=== PATIENT | male | born 1945 | race Caucasian/White ===

== ENCOUNTER 2017-08-26 11:16 | Outpatient (CLI) | payer MEDICARE ==
--- NOTE | 2017-08-26 13:49 | RAD ---
TWO VIEWS OF THE ABDOMEN: 08/26/2017 HISTORY: Kidney stones. COMPARISON: Not available. FINDINGS: The majority of the renal shadows are obscured due to an overlying moderate amount of retained fecal material seen throughout the colon. No obvious suspicious calcifications are seen on this exam. Vas cular calcifications are seen in the abdominal aorta and in the iliac arteries. Mild degenerative ch anges are seen in the spine. The visualized lung bases are clear. IMPRESSION: 1. Moderate amount of retained fecal material seen throughout the colon. 2. Limited visualization of the bilateral renal shadows due to retained fecal material in the colon; no suspicious calcification are seen along the course of either ureter. POS: [facility]
== END 2017-08-26 11:17 | disposition home or self-care (01) ==
LOC: RAD 11:16
PROVIDERS: ATTEND Urology
DX: Z87.442 Personal history of urinary calculi (principal); K59.00 Constipation, unspecified
CPT/HCPCS: 36415; 74018; 84153

== ENCOUNTER 2018-04-14 11:30 | Emergency (ER) | payer MEDICARE ==
[2018-04-14 12:39] LABS: Hemoglobin 16.5 g/dL (14.0-18.0); Mean Corpuscular HGB CONC 34.1 g/dL (32.0-36.0); Mean Corpuscular Hemoglobin 33.1 pg (27.0-31.0); Mean Corpuscular Volume 97.1 fL (78.0-98.0); Mean Platelet Volume 7.5 fL (7.4-10.4); Platelet Count 190 thou/uL (130-400); RBC Distribution Width 12.6 % (11.5-14.5); Red Blood Cell (RBC) Count 4.98 mill/uL (4.70-6.10); White Blood Cell (WBC) Count 5.5 thou/uL (4.8-10.8)
[2018-04-14 12:52] LABS: Band 4 % (5-11); Eosinophils 3 % (0-10); Lymphocytes 27 % (21-51); MDiff Complete? YES; Monocytes 1 % (0-10); Neutrophil 64 % (42-75); RBC Morphology Normal
[2018-04-14 12:59] LABS: ALT (SGPT) 17 U/L (8-55); AST (SGOT) 18 U/L (5-34); Albumin 4.2 g/dL (3.4-4.8); Alkaline Phosphatase 72 U/L (40-150); Anion Gap 15 mmol/L (10-20); BUN (Urea Nitrogen) 12 mg/dL (8.4-25.7); Bilirubin, Total 0.9 mg/dL (0.2-1.2); CK (CPK) 65 U/L (30-200); Calc. Creatinine Clearance 0 mL/min (70-130); Calcium 9.4 mg/dL (7.8-10.44); Carbon Dioxide 20 mmol/L (23-31); Chloride 107 mmol/L (98-107); Estimated GFR-MDRD 89; Glucose 90 mg/dL (83-110); Potassium 4.1 mmol/L (3.5-5.1); Protein, Total 7.2 g/dL (5.8-8.1); Sodium 138 mmol/L (136-145)
[2018-04-14 13:03] LABS: CKMB 1.2 ng/mL (0-6.6); Troponin I Less than 0.010 ng/mL (< 0.028)
== END 2018-04-14 15:54 | disposition home or self-care (01) ==
LOC: ERS 11:30
DX: I10 Essential (primary) hypertension (principal); Z71.6 Tobacco abuse counseling; F17.210 Nicotine dependence, cigarettes, uncomplicated; I25.2 Old myocardial infarction; N40.0 Benign prostatic hyperplasia without lower urinary tract symptoms
CPT/HCPCS: 36415; 80053; 82553; 84484; 85025; 93005; 99406

== ENCOUNTER 2018-05-05 13:18 | Outpatient (CLI) | payer MEDICARE ==
--- NOTE | 2018-05-05 15:01 | RAD ---
KUB: INDICATION: History of renal stones. IMAGES: Two images submitted. COMPARISON: Prior exam dated 08/26/17. FINDINGS: There is a moderate amount of retained stool within the colon similar to the comparison exam. Lung b ases are clear. No suspicious calcification is evident. Scattered degenerative changes stable. IMPRESSION: 1. Stable moderate amount of retained stool within the colon. 2. No suspicious calcifications evident. POS: [facility]
== END 2018-05-05 13:19 | disposition home or self-care (01) ==
LOC: RAD 13:18
PROVIDERS: ATTEND Urology
DX: N20.0 Calculus of kidney (principal); R97.20 Elevated prostate specific antigen [PSA]
CPT/HCPCS: 36415; 74018; 84153

== ENCOUNTER 2020-05-20 10:22 | Outpatient (CLI) | payer MEDICARE ==
--- NOTE | 2020-05-20 14:50 | NM ---
NUCLEAR MEDICINE BONE SCAN WHOLE BODY: (Skeletal scintigraphy) DATE: 05/20/2020 HISTORY: 75-year-old male with elevated PSA TECHNIQUE: IV injection of technetium 99m-MDP: 33.0 mCi 3 hour delayed whole body skeletal scintigraphy in anterior and posterior views. FINDINGS: There are no foci of asymmetrically increased uptake that are particularly suspicious for bone metast ases. IMPRESSION: No compelling evidence of skeletal metastasis.
== END 2020-05-20 10:23 | disposition home or self-care (01) ==
LOC: NM 10:22
PROVIDERS: ATTEND Urology
DX: R97.20 Elevated prostate specific antigen [PSA] (principal)
CPT/HCPCS: 78306; A9503

== ENCOUNTER 2021-04-18 10:42 | Inpatient (IN) | payer MEDICARE ==
[2021-04-18 12:00] LABS: #Eosinphils 0.3 thou/uL (0.0-0.7); #Monocytes 0.5 thou/uL (0.11-0.59); #Neutrophils 6.8 thou/uL (1.40-6.50); %Basophils 0.5 % (0.0-1.0); %Eosinophils 3.9 % (0.0-10.0); %Lymphocytes 11.8 % (21.0-51.0); %Neutrophils 77.8 % (42.0-75.0); Mean Corpuscular HGB CONC 33.8 g/dL (32.0-36.0); Mean Corpuscular Hemoglobin 31.8 pg (27.0-31.0); Mean Corpuscular Volume 94.1 fL (78.0-98.0); Platelet Count 186 thou/uL (130-400); RBC Distribution Width 13.1 % (11.5-14.5); Red Blood Cell (RBC) Count 4.72 mill/uL (4.70-6.10); White Blood Cell (WBC) Count 8.7 thou/uL (4.8-10.8)
[2021-04-18 12:18] LABS: ALT (SGPT) 12 U/L (8-55); AST (SGOT) 16 U/L (5-34); Albumin 4.2 g/dL (3.4-4.8); Alkaline Phosphatase 87 U/L (40-110); Anion Gap 13 mmol/L (10-20); BUN (Urea Nitrogen) 12 mg/dL (8.4-25.7); Bilirubin, Total 0.8 mg/dL (0.2-1.2); Calc. Creatinine Clearance 0 mL/min (70-130); Calcium 9.9 mg/dL (7.8-10.44); Carbon Dioxide 25 mmol/L (23-31); Chloride 107 mmol/L (98-107); Globulin 2.9 g/dL (2.4-3.5); Glucose 83 mg/dL (83-110); Potassium 4.4 mmol/L (3.5-5.1); Protein, Total 7.1 g/dL (5.8-8.1); Sodium 141 mmol/L (136-145)
[2021-04-18] MEDS ORDERED: Aspirin Chewable 81 MG TAB ONE (12:55)
[2021-04-18] MEDS ORDERED: Nitroglycerin 0.4 MG TAB (25 Tab Bottle) SL PRN (13:35)
[2021-04-18] MEDS ORDERED: Enoxaparin Sodium 40 MG/0.4 ML SYRINGE SC SCH (13:45)
[2021-04-18] MEDS ORDERED: Enoxaparin Sodium 40 MG/0.4 ML SYRINGE ONE (14:23)
[2021-04-18 15:10] LABS: SARS-CoV-2 NAA Rapid Test Not Detected (NotDetected)
[2021-04-18] MEDS ORDERED: Clopidogrel Bisulfate 300 MG TAB PO SCH (15:30)
[2021-04-18 15:43] VITALS: BMI 23.4
[2021-04-18] MEDS: Amlodipine 5 MG TAB PO SCH (16:44)
[2021-04-18] MEDS: Carvedilol 3.125 MG TAB PO SCH (16:45)
[2021-04-18] MEDS: Famotidine 20 MG TAB PO SCH (20:06)
[2021-04-18] MEDS ORDERED: Atorvastatin Calcium 20 MG TAB PO SCH ×2 (21:00)
[2021-04-19 04:35] LABS: #Eosinphils 0.5 thou/uL (0.0-0.7); #Lymphocytes 1.4 thou/uL (1.20-3.40); #Monocytes 0.5 thou/uL (0.11-0.59); #Neutrophils 5.4 thou/uL (1.40-6.50); %Basophils 0.3 % (0.0-1.0); %Eosinophils 6.3 % (0.0-10.0); %Lymphocytes 18.1 % (21.0-51.0); %Monocytes 6.7 % (0.0-10.0); %Neutrophils 68.5 % (42.0-75.0); Hemoglobin 13.7 g/dL (14.0-18.0); Mean Corpuscular Hemoglobin 30.9 pg (27.0-31.0); Mean Corpuscular Volume 93.6 fL (78.0-98.0); Mean Platelet Volume 7.3 fL (7.4-10.4); Platelet Count 178 thou/uL (130-400); RBC Distribution Width 12.7 % (11.5-14.5); Red Blood Cell (RBC) Count 4.42 mill/uL (4.70-6.10); White Blood Cell (WBC) Count 7.9 thou/uL (4.8-10.8)
[2021-04-19 05:06] LABS: Anion Gap 13 mmol/L (10-20); BUN (Urea Nitrogen) 16 mg/dL (8.4-25.7); Calc. Creatinine Clearance 72 mL/min (70-130); Calcium 9.1 mg/dL (7.8-10.44); Carbon Dioxide 22 mmol/L (23-31); Cardiac Risk 6.1 (Less than 4.5); Chloride 109 mmol/L (98-107); Cholesterol 190 mg/dl (< 200 Desired); Glucose 97 mg/dL (83-110); HDL Cholesterol 31 mg/dL (>60 Neg Risk); LDL Cholesterol, Calculated 115 mg/dL; Potassium 3.9 mmol/L (3.5-5.1); Sodium 140 mmol/L (136-145); Triglycerides 220 mg/dL (Less than 150)
[2021-04-19] MEDS: Famotidine 20 MG TAB PO SCH ×2 (08:51→20:27)
[2021-04-19] MEDS: Clopidogrel Bisulfate 75 MG TAB PO SCH (08:51)
[2021-04-19] MEDS: Enoxaparin Sodium 40 MG/0.4 ML SYRINGE SC SCH (08:52)
[2021-04-19] MEDS: Carvedilol 3.125 MG TAB PO SCH ×2 (08:52→17:09)
[2021-04-19] MEDS: Aspirin 325 mg Enteric Coated Tablet PO SCH (08:52)
[2021-04-19] MEDS ORDERED: Aspirin 325 mg Enteric Coated Tablet PO SCH (09:00)
[2021-04-19] MEDS ORDERED: Icosapent Ethyl 1 GM CAPSULE PO SCH (09:30)
[2021-04-19] MEDS ORDERED: Acetaminophen 325 MG TAB PO PRN (10:44)
[2021-04-19] MEDS: Amlodipine 5 MG TAB PO SCH (17:09)
[2021-04-19] MEDS: Icosapent Ethyl 1 GM CAPSULE PO SCH (20:27)
[2021-04-19] MEDS ORDERED: Atorvastatin Calcium 20 MG TAB PO SCH (21:00)
[2021-04-20] MEDS: Icosapent Ethyl 1 GM CAPSULE PO SCH (08:43)
[2021-04-20] MEDS: Aspirin 325 mg Enteric Coated Tablet PO SCH (08:43)
[2021-04-20] MEDS: Famotidine 20 MG TAB PO SCH (08:43)
[2021-04-20] MEDS: Enoxaparin Sodium 40 MG/0.4 ML SYRINGE SC SCH (08:44)
[2021-04-20] MEDS: Clopidogrel Bisulfate 75 MG TAB PO SCH (08:44)
[2021-04-20] MEDS: Carvedilol 3.125 MG TAB PO SCH (08:44)
[2021-04-20 12:47] VITALS: BP 120/74; TEMP 97.6
== END 2021-04-20 13:10 | disposition home or self-care (01) | DRG 303 ==
LOC: ERS 10:42 → SUATTDRO 10:42 → ERHOLD 13:09 → 2NO 15:17 → OBSVTOIN 04-19 17:42
PROVIDERS: ADMIT Family Medicine; ATTEND Internal Medicine
DX: I25.110 Atherosclerotic heart disease of native coronary artery with unstable angina pectoris (principal); I50.32 Chronic diastolic (congestive) heart failure; R04.2 Hemoptysis; Z20.822 Contact with and (suspected) exposure to COVID-19; E78.5 Hyperlipidemia, unspecified; K21.9 Gastro-esophageal reflux disease without esophagitis; I11.0 Hypertensive heart disease with heart failure; J44.9 Chronic obstructive pulmonary disease, unspecified; Z53.20 Procedure and treatment not carried out because of patient's decision for unspecified reasons; Z85.46 Personal history of malignant neoplasm of prostate; Z82.49 Family history of ischemic heart disease and other diseases of the circulatory system; Z28.21 Immunization not carried out because of patient refusal; Z88.5 Allergy status to narcotic agent; I25.2 Old myocardial infarction; Z95.5 Presence of coronary angioplasty implant and graft; Z87.891 Personal history of nicotine dependence; Z79.899 Other long term (current) drug therapy; Z79.82 Long term (current) use of aspirin; Z85.51 Personal history of malignant neoplasm of bladder; Z92.21 Personal history of antineoplastic chemotherapy; Z90.6 Acquired absence of other parts of urinary tract; Z80.1 Family history of malignant neoplasm of trachea, bronchus and lung; Z91.19 Patient's noncompliance with other medical treatment and regimen
CPT/HCPCS: 0240U; 36415; 36416; 71046; 80048; 80053; 80061; 84484; 85025; 93005; 93306; 94760; 96372; G0378; J1650

== ENCOUNTER 2021-08-08 07:31 | Outpatient (CLI) | payer MEDICARE | END 2021-08-08 07:32 | disposition home or self-care (01) | LOC: BICULT 07:31 | PROVIDERS: ATTEND Registered Nurse | DX: Z12.2 Encounter for screening for malignant neoplasm of respiratory organs (principal); Z13.6 Encounter for screening for cardiovascular disorders; F17.210 Nicotine dependence, cigarettes, uncomplicated; J43.9 Emphysema, unspecified; R91.8 Other nonspecific abnormal finding of lung field; K22.89 Other specified disease of esophagus | CPT/HCPCS: 71271; 76775 ==

== ENCOUNTER 2022-01-15 05:45 | Inpatient (IN) | payer MEDICARE ==
[2022-01-15] MEDS ORDERED: Ketorolac Tromethamine 30 MG/ML VIAL ONE (06:07)
[2022-01-15] MEDS ORDERED: Fentanyl 100 MCG/2 ML VIAL ONE ×2 (06:07→07:39)
[2022-01-15 07:32] LABS: #Eosinphils 0.1 thou/uL (0.0-0.7); #Lymphocytes 0.7 thou/uL (1.20-3.40); #Monocytes 0.6 thou/uL (0.11-0.59); #Neutrophils 10.4 thou/uL (1.40-6.50); %Basophils 0.1 % (0.0-1.0); %Eosinophils 0.6 % (0.0-10.0); %Lymphocytes 6.2 % (21.0-51.0); %Monocytes 4.9 % (0.0-10.0); %Neutrophils 88.2 % (42.0-75.0); Hemoglobin 14.8 g/dL (14.0-18.0); Mean Corpuscular HGB CONC 33.2 g/dL (32.0-36.0); Mean Corpuscular Volume 96.5 fL (78.0-98.0); Mean Platelet Volume 7.6 fL (7.4-10.4); Platelet Count 174 thou/uL (130-400); RBC Distribution Width 12.9 % (11.5-14.5); Red Blood Cell (RBC) Count 4.62 mill/uL (4.70-6.10); White Blood Cell (WBC) Count 11.8 thou/uL (4.8-10.8)
[2022-01-15] MEDS ORDERED: hydrALAZINE 20 MG/ML VIAL SLOW IVP PRN (07:34)
[2022-01-15] MEDS ORDERED: Promethazine HCl 25 MG/ML VIAL IM PRN (07:34)
[2022-01-15] MEDS ORDERED: Dextrose 5% in Water 1,000 ML IV PRN (07:34)
[2022-01-15] MEDS ORDERED: Ondansetron PF 4 MG/2 ML Vial IVP PRN (07:34)
[2022-01-15] MEDS ORDERED: Dextrose 50% Abboject 50 ML SYRINGE SLOW IVP PRN (07:34)
[2022-01-15] MEDS ORDERED: HumaLOG 300 UNITS/3 ML VIAL SC PRN (07:34)
[2022-01-15] MEDS ORDERED: Cyclobenzaprine 10 MG TAB PO PRN (07:37)
[2022-01-15] MEDS ORDERED: Acetaminophen 325 MG TAB PO SCH (07:45)
[2022-01-15 07:47] LABS: ALT (SGPT) 13 U/L (8-55); AST (SGOT) 14 U/L (5-34); Albumin 3.8 g/dL (3.4-4.8); Alkaline Phosphatase 68 U/L (40-110); Anion Gap 13 mmol/L (10-20); BUN (Urea Nitrogen) 15 mg/dL (8.4-25.7); Bilirubin, Total 0.8 mg/dL (0.2-1.2); Calc. Creatinine Clearance 0 mL/min (70-130); Calcium 9.6 mg/dL (7.8-10.44); Carbon Dioxide 21 mmol/L (23-31); Chloride 112 mmol/L (98-107); Globulin 2.6 g/dL (2.4-3.5); Glucose 103 mg/dL (83-110); Protein, Total 6.4 g/dL (5.8-8.1); Sodium 142 mmol/L (136-145)
[2022-01-15 09:46] VITALS: BMI 24.1
[2022-01-15] MEDS: Famotidine/PF 20 mg/2ml Vial SLOW IVP SCH ×2 (09:57→20:47)
[2022-01-15] MEDS: Senokot S 8.6-50 MG TAB PO SCH ×2 (09:57→20:47)
[2022-01-15] MEDS: Polyethylene Glycol 3350 17 GM Packet PO SCH (09:57)
[2022-01-15] MEDS: Acetaminophen 500 MG TAB PO SCH ×3 (09:59→20:49)
[2022-01-15] MEDS: traMADol HCl 50 MG TAB PO PRN (10:00)
[2022-01-15] MEDS ORDERED: Fentanyl 100 MCG/2 ML VIAL SLOW IVP PRN (10:17)
[2022-01-15] MEDS ORDERED: HYDROcodone/Acetaminophen 10/325 mg Tablet PO PRN (10:18)
[2022-01-15] MEDS ORDERED: CEFAZOLIN 2 GM in Sodium Chloride 0.9% 100 ML IVPB SCH (11:00)
[2022-01-15] MEDS: traMADol HCl 50 MG TAB PO SCH ×2 (12:50→17:32)
[2022-01-15] MEDS: Tamsulosin HCl 0.4 MG CAP PO SCH ×2 (20:49→20:51)
[2022-01-16] MEDS: traMADol HCl 50 MG TAB PO SCH ×4 (00:17→16:18)
[2022-01-16] MEDS: Acetaminophen 500 MG TAB PO SCH ×5 (02:17→20:49)
[2022-01-16 06:13] LABS: #Eosinphils 0.3 thou/uL (0.0-0.7); #Lymphocytes 1.3 thou/uL (1.20-3.40); #Monocytes 0.7 thou/uL (0.11-0.59); #Neutrophils 6.2 thou/uL (1.40-6.50); %Basophils 0.5 % (0.0-1.0); %Eosinophils 3.8 % (0.0-10.0); %Lymphocytes 15.5 % (21.0-51.0); %Monocytes 8.1 % (0.0-10.0); %Neutrophils 72.1 % (42.0-75.0); Hemoglobin 13.4 g/dL (14.0-18.0); Mean Corpuscular HGB CONC 32.8 g/dL (32.0-36.0); Mean Corpuscular Hemoglobin 31.9 pg (27.0-31.0); Mean Corpuscular Volume 97.3 fL (78.0-98.0); Mean Platelet Volume 7.7 fL (7.4-10.4); Platelet Count 149 thou/uL (130-400); RBC Distribution Width 13.1 % (11.5-14.5); Red Blood Cell (RBC) Count 4.21 mill/uL (4.70-6.10); White Blood Cell (WBC) Count 8.6 thou/uL (4.8-10.8)
[2022-01-16 06:44] LABS: Anion Gap 12 mmol/L (10-20); BUN (Urea Nitrogen) 23 mg/dL (8.4-25.7); Calc. Creatinine Clearance 75 mL/min (70-130); Calcium 8.9 mg/dL (7.8-10.44); Carbon Dioxide 22 mmol/L (23-31); Chloride 109 mmol/L (98-107); Glucose 86 mg/dL (83-110); Magnesium 1.9 mg/dL (1.6-2.6); Phosphorus 3.1 mg/dL (2.3-4.7); Potassium 4.2 mmol/L (3.5-5.1); Sodium 139 mmol/L (136-145)
[2022-01-16] MEDS: Polyethylene Glycol 3350 17 GM Packet PO SCH (08:00)
[2022-01-16] MEDS: Senokot S 8.6-50 MG TAB PO SCH ×2 (08:00→20:54)
[2022-01-16] MEDS ORDERED: Sodium Phosphate 15 MMOL in Sodium Chloride 0.9% 250 ML 250 ML IVPB SCH (11:10)
[2022-01-16] MEDS ORDERED: Ondansetron ODT 4 MG TAB PO PRN (13:04)
[2022-01-16] MEDS ORDERED: Bisacodyl 10 MG SUPP PR PRN (13:04)
[2022-01-16] MEDS ORDERED: Ondansetron PF 4 MG/2 ML Vial IVP PRN (13:04)
[2022-01-16] MEDS ORDERED: Cepastat Lozenges 1 LOZ PO PRN (13:04)
[2022-01-16] MEDS ORDERED: Fleet Enema 133 ML BOT PR PRN (13:04)
[2022-01-16] MEDS ORDERED: Milk Of Magnesia 30 ML UDCUP PO PRN (13:04)
[2022-01-16] MEDS ORDERED: Acetaminophen 325 MG TAB PO PRN ×2 (13:04→16:57)
[2022-01-16] MEDS ORDERED: fentaNYL Citrate/PF 100 MCG/2 ML SYRINGE ONE ×2 (13:07→15:32)
[2022-01-16] MEDS ORDERED: HYDROcodone/Acetaminophen 10/325 mg Tablet PO PRN ×4 (13:08→17:05)
[2022-01-16] MEDS ORDERED: Sodium Chloride 0.9% 1,000 ML IV SCH (13:15)
[2022-01-16] MEDS ORDERED: Sodium Chloride 0.9% 100 ML ONE (13:24)
[2022-01-16] MEDS ORDERED: CEFAZOLIN 2 GM VIAL ONE (13:24)
[2022-01-16] MEDS ORDERED: PHENYLEPHRINE-NS 100 MCG/ML 10 ML SYRINGE ONE (13:39)
[2022-01-16] MEDS ORDERED: ePHEDrine 50 MG/ML VIAL ONE (13:39)
[2022-01-16] MEDS ORDERED: Dexamethasone 20 MG/5 ML VIAL ONE (13:39)
[2022-01-16] MEDS ORDERED: Ketorolac Tromethamine 30 MG/ML VIAL ONE (13:39)
[2022-01-16] MEDS ORDERED: Lidocaine 1% PF 5 ML VIAL ONE (13:39)
[2022-01-16] MEDS ORDERED: Ondansetron PF 4 MG/2 ML Vial ONE (13:39)
[2022-01-16] MEDS ORDERED: HYDROmorphone 2 MG/ML VIAL ONE (13:57)
[2022-01-16] MEDS ORDERED: Ondansetron HCl/PF 4 MG/2 ML Vial IVP PRN (14:14)
[2022-01-16] MEDS ORDERED: Promethazine HCl 25 MG/ML VIAL IVPB PRN (14:14)
[2022-01-16] MEDS ORDERED: Promethazine HCl 25 MG/ML VIAL IM PRN (14:14)
[2022-01-16] MEDS: traMADol HCl 50 MG TAB PO PRN (16:19)
[2022-01-16] MEDS: Famotidine/PF 20 mg/2ml Vial SLOW IVP SCH (19:54)
[2022-01-16] MEDS: Tamsulosin HCl 0.4 MG CAP PO SCH (20:49)
[2022-01-16] MEDS: Atorvastatin Calcium 20 MG TAB PO SCH (20:52)
[2022-01-16] MEDS: Famotidine 20 MG TAB PO SCH (20:52)
[2022-01-16] MEDS: CEFAZOLIN 2 GM in Sodium Chloride 0.9% 100 ML IVPB SCH (20:52)
[2022-01-16] MEDS: Aspirin 325 MG TAB PO SCH (20:52)
[2022-01-17] MEDS: traMADol HCl 50 MG TAB PO SCH ×4 (00:21→17:41)
[2022-01-17] MEDS: Acetaminophen 500 MG TAB PO SCH ×4 (03:55→21:06)
[2022-01-17] MEDS: CEFAZOLIN 2 GM in Sodium Chloride 0.9% 100 ML IVPB SCH (05:22)
[2022-01-17 06:22] LABS: #Lymphocytes 0.7 thou/uL (1.20-3.40); #Monocytes 0.7 thou/uL (0.11-0.59); #Neutrophils 8.5 thou/uL (1.40-6.50); %Eosinophils 0.1 % (0.0-10.0); %Monocytes 7.2 % (0.0-10.0); %Neutrophils 85.7 % (42.0-75.0); Hemoglobin 12.3 g/dL (14.0-18.0); Mean Corpuscular HGB CONC 33.3 g/dL (32.0-36.0); Mean Corpuscular Hemoglobin 32.3 pg (27.0-31.0); Mean Corpuscular Volume 96.8 fL (78.0-98.0); Mean Platelet Volume 7.4 fL (7.4-10.4); Platelet Count 133 thou/uL (130-400); RBC Distribution Width 12.9 % (11.5-14.5)
[2022-01-17 06:43] LABS: Anion Gap 10 mmol/L (10-20); BUN (Urea Nitrogen) 17 mg/dL (8.4-25.7); Calc. Creatinine Clearance 69 mL/min (70-130); Calcium 8.3 mg/dL (7.8-10.44); Carbon Dioxide 24 mmol/L (23-31); Chloride 110 mmol/L (98-107); Glucose 118 mg/dL (83-110); Magnesium 1.9 mg/dL (1.6-2.6); Potassium 4.6 mmol/L (3.5-5.1); Sodium 139 mmol/L (136-145)
[2022-01-17] MEDS: Polyethylene Glycol 3350 17 GM Packet PO SCH (08:13)
[2022-01-17] MEDS: Senokot S 8.6-50 MG TAB PO SCH ×2 (08:14→21:07)
[2022-01-17] MEDS: Aspirin 325 MG TAB PO SCH ×2 (08:14→21:07)
[2022-01-17] MEDS: Amlodipine 5 MG TAB PO SCH (08:14)
[2022-01-17] MEDS: Famotidine 20 MG TAB PO SCH ×2 (08:15→21:07)
[2022-01-17] MEDS: Multivitamin W/ Minerals 1 TAB PO SCH (08:15)
[2022-01-17] MEDS: Ferrous Gluconate 324 MG TAB PO SCH ×2 (08:15→21:07)
[2022-01-17] MEDS: Lisinopril 5 MG TAB PO SCH (08:15)
[2022-01-17] MEDS ORDERED: Amlodipine 5 MG TAB PO SCH (09:00)
[2022-01-17] MEDS ORDERED: Lisinopril 5 MG TAB PO SCH (09:00)
[2022-01-17] MEDS ORDERED: Aspirin 325 MG TAB PO SCH (09:00)
[2022-01-17] MEDS ORDERED: PHOS-NAK 1 PKT PACK PO SCH (10:00)
[2022-01-17] MEDS: Atorvastatin Calcium 20 MG TAB PO SCH (21:07)
[2022-01-17] MEDS: Tamsulosin HCl 0.4 MG CAP PO SCH (21:08)
[2022-01-18] MEDS: traMADol HCl 50 MG TAB PO SCH ×4 (00:15→18:11)
[2022-01-18] MEDS: Acetaminophen 500 MG TAB PO SCH ×3 (03:52→15:05)
[2022-01-18 05:51] LABS: #Eosinphils 0.3 thou/uL (0.0-0.7); #Lymphocytes 1.6 thou/uL (1.20-3.40); #Monocytes 0.6 thou/uL (0.11-0.59); #Neutrophils 6.1 thou/uL (1.40-6.50); %Basophils 0.5 % (0.0-1.0); %Eosinophils 3.8 % (0.0-10.0); %Lymphocytes 18.8 % (21.0-51.0); %Monocytes 7.1 % (0.0-10.0); %Neutrophils 69.9 % (42.0-75.0); Hemoglobin 12.4 g/dL (14.0-18.0); Mean Corpuscular HGB CONC 32.4 g/dL (32.0-36.0); Mean Corpuscular Volume 98.9 fL (78.0-98.0); Mean Platelet Volume 7.5 fL (7.4-10.4); Platelet Count 161 thou/uL (130-400); RBC Distribution Width 13.2 % (11.5-14.5); Red Blood Cell (RBC) Count 3.88 mill/uL (4.70-6.10); White Blood Cell (WBC) Count 8.7 thou/uL (4.8-10.8)
[2022-01-18 06:14] LABS: Anion Gap 13 mmol/L (10-20); BUN (Urea Nitrogen) 15 mg/dL (8.4-25.7); Calc. Creatinine Clearance 70 mL/min (70-130); Calcium 8.7 mg/dL (7.8-10.44); Carbon Dioxide 20 mmol/L (23-31); Glucose 90 mg/dL (83-110); Magnesium 1.9 mg/dL (1.6-2.6); Phosphorus 2.5 mg/dL (2.3-4.7); Potassium 4.3 mmol/L (3.5-5.1); Sodium 139 mmol/L (136-145)
[2022-01-18 06:18] LABS: Chloride 110 mmol/L (98-107)
[2022-01-18] MEDS ORDERED: Aspirin 325 MG TAB PO SCH (08:10)
[2022-01-18] MEDS: Multivitamin W/ Minerals 1 TAB PO SCH (08:17)
[2022-01-18] MEDS: Lisinopril 5 MG TAB PO SCH (08:17)
[2022-01-18] MEDS: Ferrous Gluconate 324 MG TAB PO SCH (08:18)
[2022-01-18] MEDS: Amlodipine 5 MG TAB PO SCH (08:18)
[2022-01-18] MEDS: Famotidine 20 MG TAB PO SCH (08:18)
[2022-01-18] MEDS ORDERED: Aspirin Chewable 81 MG TAB PO SCH (09:00)
[2022-01-18] MEDS ORDERED: PHOS-NAK 1 PKT PACK PO SCH (09:00)
[2022-01-18] MEDS: Senokot S 8.6-50 MG TAB PO SCH (10:09)
[2022-01-18] MEDS: Polyethylene Glycol 3350 17 GM Packet PO SCH (10:09)
[2022-01-18 20:13] VITALS: BP 126/62; TEMP 97
== END 2022-01-18 21:38 | disposition home or self-care (01) | DRG 482 ==
LOC: ERS 05:45 → SURG A 07:34
PROVIDERS: ADMIT Surgery; ATTEND Surgery
PROC: 0QS706Z Reposition Left Upper Femur with Intramedullary Internal Fixation Device, Open Approach (ICD-10-PCS; principal; 2022-01-16)
DX: S72.142A Displaced intertrochanteric fracture of left femur, initial encounter for closed fracture (principal); Z20.822 Contact with and (suspected) exposure to COVID-19; N40.0 Benign prostatic hyperplasia without lower urinary tract symptoms; I10 Essential (primary) hypertension; E78.5 Hyperlipidemia, unspecified; I25.10 Atherosclerotic heart disease of native coronary artery without angina pectoris; W06.XXXA Fall from bed, initial encounter; Z87.891 Personal history of nicotine dependence; I25.2 Old myocardial infarction; Z95.5 Presence of coronary angioplasty implant and graft; Z85.51 Personal history of malignant neoplasm of bladder; Z79.82 Long term (current) use of aspirin; Z79.899 Other long term (current) drug therapy; Z79.02 Long term (current) use of antithrombotics/antiplatelets
CPT/HCPCS: 36415; 70450; 71045; 72125; 72190; 76000; 80048; 80053; 83735; 84100; 85025; 86850; 86900; 86901; 93005; 96374; 96375; 96376; C1713; J0690; J1100; J1170; J1885; J2405; J3010; J3490; J7050; U0003; U0005

== ENCOUNTER 2022-04-11 09:15 | Outpatient (CLI) | payer MEDICARE | END 2022-04-11 09:16 | disposition home or self-care (01) | LOC: MRI 09:15 | PROVIDERS: ATTEND Orthopaedic Surgery | DX: M23.204 Derangement of unspecified medial meniscus due to old tear or injury, left knee (principal); Z98.890 Other specified postprocedural states ==

== ENCOUNTER 2022-08-08 08:37 | Outpatient (CLI) | payer MEDICARE | END 2022-08-08 08:38 | disposition home or self-care (01) | LOC: BICCT 08:37 | PROVIDERS: ATTEND Registered Nurse | DX: Z12.2 Encounter for screening for malignant neoplasm of respiratory organs (principal); F17.210 Nicotine dependence, cigarettes, uncomplicated; R91.1 Solitary pulmonary nodule; J98.4 Other disorders of lung; I70.90 Unspecified atherosclerosis; K44.9 Diaphragmatic hernia without obstruction or gangrene; N20.0 Calculus of kidney; R16.0 Hepatomegaly, not elsewhere classified | CPT/HCPCS: 71271 ==

== ENCOUNTER 2023-01-21 02:56 | Emergency (ER) | payer MEDICARE ==
[2023-01-21 03:56] LABS: #Eosinphils 0.1 thou/uL (0.0-0.7); #Monocytes 0.4 thou/uL (0.11-0.59); #Neutrophils 5.5 thou/uL (1.40-6.50); %Basophils 0.5 % (0.0-1.0); %Eosinophils 1.4 % (0.0-10.0); %Lymphocytes 17.4 % (21.0-51.0); %Monocytes 5.2 % (0.0-10.0); Hemoglobin 15.9 g/dL (14.0-18.0); Mean Corpuscular HGB CONC 34.1 g/dL (32.0-36.0); Mean Corpuscular Volume 93.8 fl (78.0-98.0); Platelet Count 184 10x3/uL (130-400); RBC Distribution Width 13.2 % (11.5-14.5); Red Blood Cell (RBC) Count 4.97 mill/uL (4.70-6.10); White Blood Cell (WBC) Count 7.4 10x3/uL (4.8-10.8)
[2023-01-21] MEDS ORDERED: Ketorolac Tromethamine 30 MG/ML VIAL ONE (04:10)
[2023-01-21 04:27] LABS: ALT (SGPT) 12 U/L (8-55); AST (SGOT) 17 U/L (5-34); Albumin 4.2 g/dL (3.4-4.8); Alkaline Phosphatase 70 U/L (40-110); Anion Gap 11 mmol/L (10-20); BUN (Urea Nitrogen) 15 mg/dL (8.4-25.7); Bilirubin, Total 0.4 mg/dL (0.2-1.2); Calc. Creatinine Clearance 0 mL/min (70-130); Calcium 10.2 mg/dL (7.8-10.44); Carbon Dioxide 23 mmol/L (23-31); Chloride 109 mmol/L (98-107); Estimated GFR 88; Globulin 2.7 g/dL (2.4-3.5); Glucose 98 mg/dL (83-110); Lipase 85 U/L (8-78); Protein, Total 6.9 g/dL (5.8-8.1); Sodium 139 mmol/L (136-145)
[2023-01-21 05:29] LABS: Bacteria/HPF None Seen HPF (None Seen); Bilirubin Negative (Negative); Blood, Urine Negative (Negative); CAUTI Indications for Culture Pelvic or flank pain; Clarity Clear (Clear); Glucose, Urine (Dipstick) Normal (Negative); Ketone, Urine Negative (Negative); Leukocyte Negative Leu/uL (Negative); Nitrite Negative (Negative); Protein, Urine (Dipstick) Negative (Neg-Trace); RBC/HPF 0-3 HPF (0-3); Specific Gravity, Urine 1.006 (1.002-1.036); Squamous Epithelial 0-3 HPF (0-3); Urobilinogen Normal mg/dL (Less than 2); WBC/HPF 0-3 HPF (0-3); pH, Urine 6.5 (5.0-9.0)
[2023-01-21 05:32] LABS: Urine Culture Reflex No No
[2023-01-21] MEDS ORDERED: Iopamidol-370 76% 500 ML MDV (1 ML CHARGE) ONE (17:08)
== END 2023-01-21 07:02 | disposition home or self-care (01) ==
LOC: ERS 02:56
DX: K59.00 Constipation, unspecified (principal); I10 Essential (primary) hypertension; E78.5 Hyperlipidemia, unspecified
CPT/HCPCS: 36415; 74177; 80053; 81001; 83690; 84484; 85025; 96374; J1885; Q9967

== ENCOUNTER 2024-05-12 13:38 | Inpatient (IN) | payer MEDICARE ==
[~2024-05-12 13:38] MED LIST: Iopamidol-370 76% 500 ML MDV (1 ML CHARGE) ONE
[2024-05-12 14:34] LABS: #Basophils 0.04 10x3/uL (0.0-0.2); #Eosinophils Less than 0.03 10x3/uL (0.0-0.7); %Basophils 0.3 % (0.0-1.0); %Eosinophils 0.2 % (0.0-10.0); %Lymphocytes 5.8 % (21.0-51.0); %Monocytes 5.1 % (0.0-10.0); Hematocrit 41.5 % (42.0-52.0); Hemoglobin 14.2 g/dL (14.0-18.0); Mean Corpuscular HGB CONC 34.2 g/dL (32.0-36.0); Mean Corpuscular Hemoglobin 31.4 pg (27.0-31.0); Mean Corpuscular Volume 91.8 fL (78.0-98.0); Mean Platelet Volume 10.1 fL (7.4-10.4); Platelet Count 208 10x3/uL (130-400); RBC Distribution Width 13.3 % (11.5-14.5); Red Blood Cell (RBC) Count 4.52 mill/uL (4.70-6.10)
[2024-05-12] MEDS ORDERED: fentaNYL 50 mcg/mL 1 mL Vial ONE (14:41)
[2024-05-12 14:51] LABS: ALT (SGPT) 13 U/L (8-55); AST (SGOT) 24 U/L (5-34); Albumin 3.8 g/dL (3.4-4.8); Alkaline Phosphatase 83 U/L (40-110); Anion Gap 17 mmol/L (10-20); BUN (Urea Nitrogen) 23 mg/dL (8.4-25.7); Bilirubin, Total 1.2 mg/dL (0.2-1.2); Calc. Creatinine Clearance 0 mL/min (70-130); Calcium 9.9 mg/dL (7.8-10.44); Carbon Dioxide 18 mmol/L (23-31); Chloride 105 mmol/L (98-107); Estimated GFR 78; Globulin 3.2 g/dL (2.4-3.5); Glucose 108 mg/dL (83-110); Lipase 38 U/L (8-78); Potassium 4.5 mmol/L (3.5-5.1); Sodium 135 mmol/L (136-145)
[2024-05-12] MEDS ORDERED: Piperacillin/Tazobactam 4.5 GM VIAL ONE (16:42)
[2024-05-12] MEDS ORDERED: Ketorolac Tromethamine 30 MG (1 mL) VIAL ONE (16:42)
[2024-05-12] MEDS ORDERED: Sodium Chloride 0.9% 100 ML ONE (16:43)
[2024-05-12] MEDS ORDERED: Acetaminophen 325 MG TAB PER TUBE PRN (17:10)
[2024-05-12] MEDS ORDERED: Ondansetron ODT 4 MG TAB PO PRN (17:10)
[2024-05-12] MEDS ORDERED: Ondansetron PF 4 MG/2 ML Vial IVP PRN (17:10)
[2024-05-12 19:41] VITALS: BMI 18.3
[2024-05-12] MEDS: Senokot S 8.6-50 MG TAB PER TUBE SCH (20:24)
[2024-05-12] MEDS: Polyethylene Glycol 3350 17 GM Packet PER TUBE SCH (20:24)
[2024-05-12] MEDS: Lactated Ringer's 1,000 ML IV SCH (20:25)
[2024-05-12] MEDS: Piperacillin/Tazobactam 3.375 GM in Sodium Chloride 0.9% 100 ML IVPB SCH (20:25)
[2024-05-13] MEDS: Ketorolac Tromethamine 30 MG (1 mL) VIAL IVP SCH (03:58)
[2024-05-13] MEDS ORDERED: HYDROmorphone 0.5 MG/0.5 ML SYRINGE SLOW IVP SCH (04:30)
[2024-05-13 05:02] LABS: #Basophils 0.05 10x3/uL (0.0-0.2); %Basophils 0.6 % (0.0-1.0); %Eosinophils 2.5 % (0.0-10.0); %Monocytes 7.5 % (0.0-10.0); %Neutrophils 75.9 % (42.0-75.0); Hematocrit 40.2 % (42.0-52.0); Hemoglobin 14.1 g/dL (14.0-18.0); Mean Corpuscular HGB CONC 35.1 g/dL (32.0-36.0); Mean Corpuscular Hemoglobin 31.5 pg (27.0-31.0); Mean Corpuscular Volume 89.7 fL (78.0-98.0); Platelet Count 188 10x3/uL (130-400); RBC Distribution Width 13.3 % (11.5-14.5); Red Blood Cell (RBC) Count 4.48 mill/uL (4.70-6.10)
[2024-05-13 05:23] LABS: Anion Gap 12 mmol/L (10-20); BUN (Urea Nitrogen) 19 mg/dL (8.4-25.7); Calc. Creatinine Clearance 58 mL/min (70-130); Calcium 9.5 mg/dL (7.8-10.44); Carbon Dioxide 22 mmol/L (23-31); Chloride 108 mmol/L (98-107); Estimated GFR 87; Glucose 86 mg/dL (83-110); Potassium 3.5 mmol/L (3.5-5.1); Sodium 138 mmol/L (136-145)
[2024-05-13] MEDS: Polyethylene Glycol 3350 17 GM Packet PER TUBE SCH (09:00)
[2024-05-13] MEDS: Atorvastatin Calcium 40 MG TAB PO SCH (09:00)
[2024-05-13] MEDS: Enoxaparin 40 MG (0.4 mL) SYRINGE SC SCH (09:00)
[2024-05-13 10:40] VITALS: BMI 18.3
[2024-05-13] MEDS: HYDROcodone/Acetaminophen 5/325 mg Tablet PO PRN (11:09)
[2024-05-13] MEDS: fentaNYL 50 mcg/mL 1 mL Vial SLOW IVP SCH (17:32)
[2024-05-13] MEDS: Fleet Saline Enema 133 ML BOT PR SCH (17:33)
[2024-05-13] MEDS: traMADol HCl 50 MG TAB PO SCH (17:34)
[2024-05-13] MEDS ORDERED: Glycerin Adult Supp. (12 ct jar) RC PRN (19:46)
[2024-05-13] MEDS: Sodium Chloride 0.9% 1,000 ML IV SCH (20:26)
[2024-05-14 06:16] LABS: #Basophils 0.03 10x3/uL (0.0-0.2); %Basophils 0.3 % (0.0-1.0); %Lymphocytes 8.7 % (21.0-51.0); %Monocytes 7.4 % (0.0-10.0); %Neutrophils 81.2 % (42.0-75.0); Hematocrit 39.3 % (42.0-52.0); Hemoglobin 13.4 g/dL (14.0-18.0); Mean Corpuscular HGB CONC 34.1 g/dL (32.0-36.0); Mean Corpuscular Hemoglobin 31.2 pg (27.0-31.0); Mean Corpuscular Volume 91.4 fL (78.0-98.0); Mean Platelet Volume 10.3 fL (7.4-10.4); Platelet Count 181 10x3/uL (130-400); RBC Distribution Width 13.2 % (11.5-14.5)
[2024-05-14 06:55] LABS: Anion Gap 9 mmol/L (10-20); BUN (Urea Nitrogen) 13 mg/dL (8.4-25.7); Calc. Creatinine Clearance 60 mL/min (70-130); Calcium 8.6 mg/dL (7.8-10.44); Carbon Dioxide 22 mmol/L (23-31); Chloride 111 mmol/L (98-107); Estimated GFR 88; Glucose 116 mg/dL (83-110); Potassium 3.4 mmol/L (3.5-5.1); Sodium 139 mmol/L (136-145)
[2024-05-14] MEDS: FLU (Fluad Triv) TS24-25 (65UP)/MF59C/PF 45 MCG/0.5 ML Syringe IM ONE (09:27)
[2024-05-14] MEDS: Magnesium Citrate 300 ML BOT PO SCH (11:53)
[2024-05-15 04:57] LABS: #Basophils 0.03 10x3/uL (0.0-0.2); %Basophils 0.5 % (0.0-1.0); %Eosinophils 4.7 % (0.0-10.0); %Lymphocytes 18.9 % (21.0-51.0); %Monocytes 9.3 % (0.0-10.0); %Neutrophils 66.3 % (42.0-75.0); Hematocrit 39.5 % (42.0-52.0); Hemoglobin 12.9 g/dL (14.0-18.0); Mean Corpuscular HGB CONC 32.7 g/dL (32.0-36.0); Mean Corpuscular Hemoglobin 31.1 pg (27.0-31.0); Mean Corpuscular Volume 95.2 fL (78.0-98.0); Mean Platelet Volume 10.1 fL (7.4-10.4); Platelet Count 183 10x3/uL (130-400); RBC Distribution Width 13.6 % (11.5-14.5); Red Blood Cell (RBC) Count 4.15 mill/uL (4.70-6.10)
[2024-05-15 05:23] LABS: Anion Gap 9 mmol/L (10-20); BUN (Urea Nitrogen) 11 mg/dL (8.4-25.7); Calc. Creatinine Clearance 62 mL/min (70-130); Calcium 8.6 mg/dL (7.8-10.44); Carbon Dioxide 23 mmol/L (23-31); Chloride 112 mmol/L (98-107); Estimated GFR 89; Glucose 92 mg/dL (83-110); Potassium 3.5 mmol/L (3.5-5.1); Sodium 140 mmol/L (136-145)
[2024-05-16 05:25] LABS: #Basophils 0.05 10x3/uL (0.0-0.2); %Basophils 0.6 % (0.0-1.0); %Eosinophils 3.1 % (0.0-10.0); %Lymphocytes 10.6 % (21.0-51.0); %Monocytes 7.1 % (0.0-10.0); %Neutrophils 78.3 % (42.0-75.0); Hematocrit 38.2 % (42.0-52.0); Hemoglobin 12.7 g/dL (14.0-18.0); Mean Corpuscular HGB CONC 33.2 g/dL (32.0-36.0); Mean Corpuscular Hemoglobin 30.8 pg (27.0-31.0); Mean Corpuscular Volume 92.7 fL (78.0-98.0); Mean Platelet Volume 10.2 fL (7.4-10.4); Platelet Count 173 10x3/uL (130-400); RBC Distribution Width 13.4 % (11.5-14.5); Red Blood Cell (RBC) Count 4.12 mill/uL (4.70-6.10)
[2024-05-16 05:44] LABS: Anion Gap 10 mmol/L (10-20); BUN (Urea Nitrogen) 11 mg/dL (8.4-25.7); Calc. Creatinine Clearance 73 mL/min (70-130); Calcium 8.5 mg/dL (7.8-10.44); Carbon Dioxide 21 mmol/L (23-31); Chloride 113 mmol/L (98-107); Estimated GFR 93; Glucose 93 mg/dL (83-110); Potassium 3.2 mmol/L (3.5-5.1); Sodium 141 mmol/L (136-145)
[2024-05-16] MEDS: Magnesium 2 GM/50 ML(in water) 2 GM in Premix 1 BAG IVPB SCH (11:09)
[2024-05-16 13:10] LABS: Phosphorus 1.8 mg/dL (2.3-4.7)
[2024-05-16] MEDS: Potassium Phosphate 30 MMOL in Sodium Chloride 0.9% 250 ML 250 ML IVPB SCH (15:53)
[2024-05-16] MEDS: Potassium Chloride 20 MEQ in Premix 1 BAG IVPB SCH (17:20)
[2024-05-17 07:54] LABS: #Basophils Less than 0.03 10x3/uL (0.0-0.2); %Basophils 0.3 % (0.0-1.0); %Eosinophils 3.4 % (0.0-10.0); %Lymphocytes 8.7 % (21.0-51.0); %Monocytes 6.6 % (0.0-10.0); %Neutrophils 80.3 % (42.0-75.0); Hematocrit 42.2 % (42.0-52.0); Hemoglobin 14.1 g/dL (14.0-18.0); Mean Corpuscular HGB CONC 33.4 g/dL (32.0-36.0); Mean Corpuscular Hemoglobin 31.3 pg (27.0-31.0); Mean Corpuscular Volume 93.8 fL (78.0-98.0); Mean Platelet Volume 10.2 fL (7.4-10.4); Platelet Count 177 10x3/uL (130-400); RBC Distribution Width 13.5 % (11.5-14.5)
[2024-05-17 08:10] LABS: Anion Gap 13 mmol/L (10-20); BUN (Urea Nitrogen) 11 mg/dL (8.4-25.7); Calc. Creatinine Clearance 68 mL/min (70-130); Calcium 9.1 mg/dL (7.8-10.44); Carbon Dioxide 23 mmol/L (23-31); Chloride 110 mmol/L (98-107); Estimated GFR 91; Glucose 91 mg/dL (83-110); Potassium 3.6 mmol/L (3.5-5.1); Sodium 142 mmol/L (136-145)
[2024-05-17] MEDS: Potassium Phosphate 30 MMOL in Sodium Chloride 0.9% 250 ML 250 ML IVPB SCH (17:13)
[2024-05-17 17:25] LABS: Phosphorus 2.4 mg/dL (2.3-4.7)
[2024-05-18 05:54] LABS: #Basophils 0.04 10x3/uL (0.0-0.2); %Basophils 0.6 % (0.0-1.0); %Eosinophils 4.5 % (0.0-10.0); %Lymphocytes 12.8 % (21.0-51.0); %Monocytes 7.7 % (0.0-10.0); %Neutrophils 73.9 % (42.0-75.0); Hematocrit 39.8 % (42.0-52.0); Hemoglobin 13.2 g/dL (14.0-18.0); Mean Corpuscular HGB CONC 33.2 g/dL (32.0-36.0); Mean Corpuscular Hemoglobin 30.8 pg (27.0-31.0); Mean Platelet Volume 10.2 fL (7.4-10.4); Platelet Count 164 10x3/uL (130-400); RBC Distribution Width 13.6 % (11.5-14.5); Red Blood Cell (RBC) Count 4.28 mill/uL (4.70-6.10)
[2024-05-18 06:13] LABS: Anion Gap 10 mmol/L (10-20); BUN (Urea Nitrogen) 12 mg/dL (8.4-25.7); Calc. Creatinine Clearance 69 mL/min (70-130); Calcium 9.1 mg/dL (7.8-10.44); Carbon Dioxide 26 mmol/L (23-31); Chloride 111 mmol/L (98-107); Estimated GFR 92; Glucose 94 mg/dL (83-110); Potassium 4.2 mmol/L (3.5-5.1); Sodium 143 mmol/L (136-145)
[2024-05-19 05:12] LABS: #Basophils 0.03 10x3/uL (0.0-0.2); %Basophils 0.4 % (0.0-1.0); %Eosinophils 4.1 % (0.0-10.0); %Lymphocytes 11.8 % (21.0-51.0); %Monocytes 7.6 % (0.0-10.0); %Neutrophils 75.8 % (42.0-75.0); Hematocrit 38.5 % (42.0-52.0); Hemoglobin 12.9 g/dL (14.0-18.0); Mean Corpuscular HGB CONC 33.5 g/dL (32.0-36.0); Mean Corpuscular Hemoglobin 31.2 pg (27.0-31.0); Mean Platelet Volume 10.7 fL (7.4-10.4); Platelet Count 167 10x3/uL (130-400); RBC Distribution Width 13.3 % (11.5-14.5); Red Blood Cell (RBC) Count 4.14 mill/uL (4.70-6.10)
[2024-05-19 05:29] LABS: Anion Gap 10 mmol/L (10-20); BUN (Urea Nitrogen) 13 mg/dL (8.4-25.7); Calc. Creatinine Clearance 73 mL/min (70-130); Carbon Dioxide 26 mmol/L (23-31); Chloride 110 mmol/L (98-107); Estimated GFR 93; Glucose 87 mg/dL (83-110); Potassium 3.8 mmol/L (3.5-5.1); Sodium 142 mmol/L (136-145)
[2024-05-19 16:06] VITALS: BP 118/60; TEMP 98.1
== END 2024-05-19 18:22 | disposition home or self-care (01) | DRG 389 ==
LOC: ERS 13:38 → ERHOLD 16:55 → SURG B 18:57 → OBSVTOIN 05-14 10:30
PROVIDERS: ADMIT Internal Medicine; ATTEND Internal Medicine
DX: K56.41 Fecal impaction (principal); E44.1 Mild protein-calorie malnutrition; K52.9 Noninfective gastroenteritis and colitis, unspecified; I25.10 Atherosclerotic heart disease of native coronary artery without angina pectoris; Z95.5 Presence of coronary angioplasty implant and graft; C67.9 Malignant neoplasm of bladder, unspecified; I10 Essential (primary) hypertension; E78.5 Hyperlipidemia, unspecified; Z88.6 Allergy status to analgesic agent; Z93.1 Gastrostomy status; R13.12 Dysphagia, oropharyngeal phase; K21.9 Gastro-esophageal reflux disease without esophagitis; Z68.26 Body mass index [BMI] 26.0-26.9, adult; E87.6 Hypokalemia; E83.39 Other disorders of phosphorus metabolism
CPT/HCPCS: 36415; 74018; 74177; 74230; 80048; 80053; 83605; 83690; 84100; 85025; 96365; 96366; 96372; 96375; 96376; G0378; J1650; J1885; J2543; J3010; J3475; J7030; J7050; J7120; Q9967